=== PATIENT | female | born 1945 | race Caucasian/White ===

== ENCOUNTER 2020-09-04 10:31 | Observation (INO) ==
[2020-09-04 11:08] LABS: Eosinophils # 0.1 K/mcL (0.0-0.6); Eosinophils % 1.4 %; Hematocrit 19.8 % (35.3-44.9); Hemoglobin 6.2 g/dL (11.5-15.4); Immature Granulocytes % 1.1 % (0-4); Lymphocytes # 1.2 K/mcL (0.6-4.6); Mean Corpuscular HGB Conc 31.3 g/dL (31.6-35.5); Mean Corpuscular Hemoglobin 30.8 pg (28.0-33.3); Mean Corpuscular Volume 98.5 fL (83.0-100.0); Monocytes # 0.6 K/mcL (0.0-1.3); Neutrophils # 4.4 K/mcL (1.6-8.9); Platelet Count 194 K/mcL (140-400); Red Blood Count 2.01 M/mcL (3.82-4.97); Red Cell Distribution Width 14.6 % (11.5-14.5); Segmented Neutrophils % 68.5 %; White Blood Count 6.4 K/mcL (4.3-11.1)
[2020-09-04 11:15] LABS: Activated Partial Thrombo Time 26.7 Seconds (26.0-36.0)
[2020-09-04 11:25] LABS: Alanine Aminotransferase 16 Units/L (7-52); Albumin 3.5 g/dL (3.5-5.7); Albumin/Globulin Ratio 1.9 (1.1-2.2); Alkaline Phosphatase 37 Units/L (34-104); Aspartate Amino Transferase 15 Units/L (13-39); BUN/Creatinine Ratio 40 (6-26); Bilirubin,Total 0.5 mg/dL (0.3-1.0); Blood Urea Nitrogen 34 mg/dL (8-23); Calcium 8.1 mg/dL (8.6-10.3); Carbon Dioxide 23 mEq/L (23-29); Chloride 93 mEq/L (98-107); Globulin 1.8 g/dL (2.4-3.5); Glucose 88 mg/dL (70-105); Osmolality,Calculated 259 (280-300); Potassium 4.9 mEq/L (3.5-5.1); Sodium 121 mEq/L (136-145); Total Protein 5.3 g/dL (6.4-8.9); eGFR For African Americans > 60 (> 60); eGFR For Non-African Americans > 60 (> 60)
[2020-09-04] MEDS ORDERED: Mag Hydrox/Al Hydrox/Simeth 30 ML UDC PO PRN (13:33)
[2020-09-04] MEDS ORDERED: Melatonin 3 MG TABLET PO PRN (13:33)
[2020-09-04] MEDS ORDERED: Ondansetron 4 MG/2 ML VIAL IVP PRN (13:33)
[2020-09-04] MEDS ORDERED: Ondansetron ODT 4 MG TAB.RAPDIS SL PRN (13:33)
[2020-09-04] MEDS ORDERED: MOM Conc 10 ML UD.LIQ PO PRN (13:33)
[2020-09-04] MEDS ORDERED: Naloxone 0.4 MG/ML INJ IVP PRN (13:33)
[2020-09-04] MEDS ORDERED: Acetaminophen 325 MG TABLET PO PRN (13:33)
[2020-09-04] MEDS ORDERED: Furosemide 20 MG/2 ML VIAL IVP ONE ×2 (13:38→20:00)
[2020-09-04] MEDS ORDERED: 0.9 % Sodium Chloride 250 ML IVC SCH (13:45)
[2020-09-04 14:26] LABS: Bilirubin,Urine Moderate (Negative); Blood,Urine Negative (Negative); Clarity,Urine Clear (Clear); Color,Urine Yellow (Yellow); Glucose,Urine (UA) Normal (Normal); Ketones,Urine Negative (Negative); Leukocyte Esterase,Urine Moderate (Negative); Nitrite,Urine Positive (Negative); Protein,Urine Negative (Neg-Trace); Urobilinogen,Urine Normal (Normal)
[2020-09-04 14:33] LABS: Bacteria,Urine Many per hpf (None-Few); RBC,Urine 0-3 per hpf (0-3)
[2020-09-04] MEDS: ALPRAZolam 0.5 MG TABLET PO SCH ×2 (14:59→20:54)
[2020-09-04] MEDS: 0.9 % Sodium Chloride 1,000 ML IVC SCH (15:00)
[2020-09-04] MEDS: Gabapentin 300 MG CAPSULE PO SCH ×2 (15:00→20:54)
[2020-09-04] MEDS: amLODIPine 5 MG TABLET PO SCH (20:54)
[2020-09-04] MEDS: Metoprolol 100 MG TABLET PO SCH (20:54)
[2020-09-04 22:23] LABS: Hematocrit 24.2 % (35.3-44.9); Hemoglobin 7.6 g/dL (11.5-15.4)
[2020-09-05] MEDS ORDERED: 0.9 % Sodium Chloride 250 ML IVC SCH (00:15)
[2020-09-05 04:36] LABS: Hematocrit 25.1 % (35.3-44.9); Hemoglobin 7.9 g/dL (11.5-15.4); Mean Corpuscular HGB Conc 31.5 g/dL (31.6-35.5); Mean Corpuscular Hemoglobin 30.5 pg (28.0-33.3); Mean Corpuscular Volume 96.9 fL (83.0-100.0); Mean Platelet Volume 8.7 fL (9.4-12.4); Platelet Count 160 K/mcL (140-400); Red Blood Count 2.59 M/mcL (3.82-4.97); Red Cell Distribution Width 15.1 % (11.5-14.5); White Blood Count 4.8 K/mcL (4.3-11.1)
[2020-09-05 04:54] LABS: Alanine Aminotransferase 14 Units/L (7-52); Albumin 3.2 g/dL (3.5-5.7); Albumin/Globulin Ratio 1.9 (1.1-2.2); Alkaline Phosphatase 36 Units/L (34-104); Aspartate Amino Transferase 12 Units/L (13-39); BUN/Creatinine Ratio 33 (6-26); Bilirubin,Total 0.3 mg/dL (0.3-1.0); Blood Urea Nitrogen 24 mg/dL (8-23); Calcium 8.3 mg/dL (8.6-10.3); Carbon Dioxide 26 mEq/L (23-29); Chloride 101 mEq/L (98-107); Globulin 1.7 g/dL (2.4-3.5); Glucose 105 mg/dL (70-105); Magnesium 1.9 mg/dL (1.6-2.6); Osmolality,Calculated 276 (280-300); Phosphorous 3.3 mg/dL (2.7-4.5); Potassium 4.7 mEq/L (3.5-5.1); Sodium 131 mEq/L (136-145); Total Protein 4.9 g/dL (6.4-8.9); eGFR For African Americans > 60 (> 60); eGFR For Non-African Americans > 60 (> 60)
[2020-09-05] MEDS: 0.9 % Sodium Chloride 1,000 ML IVC SCH (05:52)
[2020-09-05 06:56] VITALS: BP 132/73
[2020-09-05] MEDS: Metoprolol 100 MG TABLET PO SCH (08:31)
[2020-09-05] MEDS: ALPRAZolam 0.5 MG TABLET PO SCH (08:31)
[2020-09-05] MEDS: amLODIPine 5 MG TABLET PO SCH (08:32)
[2020-09-05] MEDS: Gabapentin 300 MG CAPSULE PO SCH (08:32)
[2020-09-05] MEDS ORDERED: Fluticasone Propionate Nasal 50 MCG/SPRAY BOTTLE NS SCH (09:00)
[2020-09-05] MEDS ORDERED: lisinopriL 20 MG TABLET PO SCH (09:00)
[2020-09-05] MEDS ORDERED: Aspirin Enteric Coated 81 MG Tablet PO SCH (09:00)
[2020-09-05] MEDS ORDERED: Furosemide 40 MG TABLET PO SCH (09:00)
[2020-09-05] MEDS ORDERED: levoFLOXacin 500 MG TABLET PO SCH (09:00)
== END 2020-09-05 12:11 | disposition home or self-care (01) ==
LOC: EMEROOGRE 10:31 → INPGRE 10:31
PROVIDERS: ADMIT Family Medicine; ATTEND Family Medicine

== ENCOUNTER 2021-01-05 08:32 | Inpatient (IN) ==
[2021-01-06] MEDS: ALPRAZolam 0.5 MG TABLET PO SCH ×5 (17:40→21:34)
[2021-01-06] MEDS: Gabapentin 300 MG CAPSULE PO SCH ×5 (17:40→21:34)
[2021-01-06] MEDS: *HR* Enoxaparin 40 MG/0.4 ML SYRINGE SQ SCH (17:41)
[2021-01-06] MEDS: amLODIPine 5 MG TABLET PO SCH ×3 (17:41→21:39)
[2021-01-06] MEDS: Aspirin Enteric Coated 81 MG Tablet PO SCH (17:41)
[2021-01-06] MEDS: Metoprolol 100 MG TABLET PO SCH ×3 (17:41→21:34)
[2021-01-06] MEDS: Fluticasone Propionate Nasal 50 MCG/SPRAY BOTTLE NS SCH (17:42)
[2021-01-06] MEDS: lisinopriL 20 MG TABLET PO SCH (17:44)
[2021-01-06] MEDS: Furosemide 40 MG TABLET PO SCH (17:44)
[2021-01-06] MEDS: methocarbamoL 500 MG TABLET PO PRN (21:34)
[2021-01-07] MEDS: *HR* Enoxaparin 40 MG/0.4 ML SYRINGE SQ SCH (05:40)
[2021-01-07] MEDS: amLODIPine 5 MG TABLET PO SCH ×2 (08:43→21:38)
[2021-01-07] MEDS: Acetaminophen 325 MG TABLET PO PRN ×3 (08:43→21:37)
[2021-01-07] MEDS: lisinopriL 20 MG TABLET PO SCH (08:44)
[2021-01-07] MEDS: Gabapentin 300 MG CAPSULE PO SCH ×3 (08:44→21:39)
[2021-01-07] MEDS: Aspirin Enteric Coated 81 MG Tablet PO SCH (08:44)
[2021-01-07] MEDS: Furosemide 40 MG TABLET PO SCH (08:44)
[2021-01-07] MEDS: Metoprolol 100 MG TABLET PO SCH ×2 (08:44→21:38)
[2021-01-07] MEDS: ALPRAZolam 0.5 MG TABLET PO SCH ×3 (08:44→21:36)
[2021-01-07] MEDS: Fluticasone Propionate Nasal 50 MCG/SPRAY BOTTLE NS SCH (08:46)
[2021-01-07 10:29] LABS: Alanine Aminotransferase 11 Units/L (7-52); Albumin 3.8 g/dL (3.5-5.7); Albumin/Globulin Ratio 1.4 (1.1-2.2); Alkaline Phosphatase 138 Units/L (34-104); Aspartate Amino Transferase 12 Units/L (13-39); BUN/Creatinine Ratio 21 (6-26); Bilirubin,Total 0.7 mg/dL (0.3-1.0); Blood Urea Nitrogen 12 mg/dL (8-23); Calcium 9.7 mg/dL (8.6-10.3); Carbon Dioxide 29 mEq/L (23-29); Chloride 95 mEq/L (98-107); Globulin 2.7 g/dL (2.4-3.5); Glucose 102 mg/dL (70-105); Magnesium 1.5 mg/dL (1.6-2.6); Osmolality,Calculated 274 (280-300); Sodium 132 mEq/L (136-145); Total Protein 6.5 g/dL (6.4-8.9); eGFR For African Americans > 60 (> 60); eGFR For Non-African Americans > 60 (> 60)
[2021-01-07 10:37] LABS: Hematocrit 35.9 % (35.3-44.9); Hemoglobin 11.6 g/dL (11.5-15.4); Mean Corpuscular HGB Conc 32.3 g/dL (31.6-35.5); Mean Corpuscular Hemoglobin 29.9 pg (28.0-33.3); Mean Corpuscular Volume 92.5 fL (83.0-100.0); Mean Platelet Volume 8.8 fL (9.4-12.4); Platelet Count 343 K/mcL (140-400); Red Blood Count 3.88 M/mcL (3.82-4.97); Red Cell Distribution Width 13.5 % (11.5-14.5); White Blood Count 6.9 K/mcL (4.3-11.1)
[2021-01-07] MEDS: methocarbamoL 500 MG TABLET PO PRN (21:38)
[2021-01-08] MEDS ORDERED: *HR* HYDROcodone/Acet 5/325 mg TABLET PO ONE (04:16)
[2021-01-08] MEDS: *HR* Enoxaparin 40 MG/0.4 ML SYRINGE SQ SCH (04:34)
[2021-01-08] MEDS: Aspirin Enteric Coated 81 MG Tablet PO SCH (08:31)
[2021-01-08] MEDS: amLODIPine 5 MG TABLET PO SCH ×2 (08:31→20:45)
[2021-01-08] MEDS: lisinopriL 20 MG TABLET PO SCH (08:31)
[2021-01-08] MEDS: ALPRAZolam 0.5 MG TABLET PO SCH ×3 (08:32→20:44)
[2021-01-08] MEDS: Gabapentin 300 MG CAPSULE PO SCH ×3 (08:32→20:45)
[2021-01-08] MEDS: Furosemide 40 MG TABLET PO SCH (08:32)
[2021-01-08] MEDS: Fluticasone Propionate Nasal 50 MCG/SPRAY BOTTLE NS SCH (08:33)
[2021-01-08] MEDS: Metoprolol 100 MG TABLET PO SCH ×2 (08:35→20:44)
[2021-01-08] MEDS: Magnesium Oxide 400 MG TABLET PO SCH (20:45)
[2021-01-08] MEDS: methocarbamoL 500 MG TABLET PO PRN (20:46)
[2021-01-09] MEDS: *HR* Enoxaparin 40 MG/0.4 ML SYRINGE SQ SCH (04:35)
[2021-01-09] MEDS: Acetaminophen 325 MG TABLET PO PRN ×2 (04:42→13:03)
[2021-01-09] MEDS: methocarbamoL 500 MG TABLET PO PRN ×3 (04:42→21:43)
[2021-01-09 05:22] LABS: Hematocrit 30.4 % (35.3-44.9); Mean Corpuscular HGB Conc 31.9 g/dL (31.6-35.5); Mean Corpuscular Hemoglobin 29.8 pg (28.0-33.3); Mean Corpuscular Volume 93.5 fL (83.0-100.0); Mean Platelet Volume 8.5 fL (9.4-12.4); Platelet Count 244 K/mcL (140-400); Red Blood Count 3.25 M/mcL (3.82-4.97); Red Cell Distribution Width 13.3 % (11.5-14.5); White Blood Count 5.4 K/mcL (4.3-11.1)
[2021-01-09 05:27] LABS: Hemoglobin 9.7 g/dL (11.5-15.4)
[2021-01-09 05:37] LABS: BUN/Creatinine Ratio 30 (6-26); Blood Urea Nitrogen 10 mg/dL (8-23); Calcium 9.3 mg/dL (8.6-10.3); Carbon Dioxide 30 mEq/L (23-29); Chloride 99 mEq/L (98-107); Glucose 89 mg/dL (70-105); Magnesium 1.7 mg/dL (1.6-2.6); Osmolality,Calculated 277 (280-300); Potassium 4.2 mEq/L (3.5-5.1); Sodium 134 mEq/L (136-145); eGFR For African Americans > 60 (> 60); eGFR For Non-African Americans > 60 (> 60)
[2021-01-09] MEDS: Aspirin Enteric Coated 81 MG Tablet PO SCH (08:21)
[2021-01-09] MEDS: Gabapentin 300 MG CAPSULE PO SCH ×3 (08:21→21:43)
[2021-01-09] MEDS: lisinopriL 20 MG TABLET PO SCH (08:21)
[2021-01-09] MEDS: Furosemide 40 MG TABLET PO SCH (08:21)
[2021-01-09] MEDS: Fluticasone Propionate Nasal 50 MCG/SPRAY BOTTLE NS SCH (08:22)
[2021-01-09] MEDS: ALPRAZolam 0.5 MG TABLET PO SCH ×3 (08:22→21:42)
[2021-01-09] MEDS: amLODIPine 5 MG TABLET PO SCH ×2 (08:22→21:43)
[2021-01-09] MEDS: Metoprolol 100 MG TABLET PO SCH ×2 (08:22→21:42)
[2021-01-09] MEDS: Magnesium Oxide 400 MG TABLET PO SCH ×2 (08:23→21:43)
[2021-01-10] MEDS: *HR* Enoxaparin 40 MG/0.4 ML SYRINGE SQ SCH (05:10)
[2021-01-10] MEDS: Metoprolol 100 MG TABLET PO SCH ×2 (09:46→20:08)
[2021-01-10] MEDS: ALPRAZolam 0.5 MG TABLET PO SCH ×3 (09:46→20:09)
[2021-01-10] MEDS: Aspirin Enteric Coated 81 MG Tablet PO SCH (09:46)
[2021-01-10] MEDS: Furosemide 40 MG TABLET PO SCH (09:47)
[2021-01-10] MEDS: Magnesium Oxide 400 MG TABLET PO SCH ×2 (09:47→20:09)
[2021-01-10] MEDS: Gabapentin 300 MG CAPSULE PO SCH ×3 (09:47→20:09)
[2021-01-10] MEDS: lisinopriL 20 MG TABLET PO SCH (09:47)
[2021-01-10] MEDS: amLODIPine 5 MG TABLET PO SCH ×2 (09:47→20:08)
[2021-01-10] MEDS: methocarbamoL 500 MG TABLET PO PRN ×2 (09:47→20:09)
[2021-01-10] MEDS: Acetaminophen 325 MG TABLET PO PRN (09:47)
[2021-01-10] MEDS: Fluticasone Propionate Nasal 50 MCG/SPRAY BOTTLE NS SCH (09:52)
[2021-01-11] MEDS: *HR* Enoxaparin 40 MG/0.4 ML SYRINGE SQ SCH (05:28)
[2021-01-11] MEDS: amLODIPine 5 MG TABLET PO SCH ×2 (08:21→22:04)
[2021-01-11] MEDS: Acetaminophen 325 MG TABLET PO PRN ×2 (08:21→22:05)
[2021-01-11] MEDS: lisinopriL 20 MG TABLET PO SCH (08:21)
[2021-01-11] MEDS: Magnesium Oxide 400 MG TABLET PO SCH ×2 (08:21→22:06)
[2021-01-11] MEDS: Gabapentin 300 MG CAPSULE PO SCH ×3 (08:22→22:04)
[2021-01-11] MEDS: Aspirin Enteric Coated 81 MG Tablet PO SCH (08:22)
[2021-01-11] MEDS: methocarbamoL 500 MG TABLET PO PRN (08:22)
[2021-01-11] MEDS: ALPRAZolam 0.5 MG TABLET PO SCH ×3 (08:22→22:05)
[2021-01-11] MEDS: Metoprolol 100 MG TABLET PO SCH ×2 (08:22→22:05)
[2021-01-11] MEDS: Furosemide 40 MG TABLET PO SCH (08:22)
[2021-01-11] MEDS: Fluticasone Propionate Nasal 50 MCG/SPRAY BOTTLE NS SCH (08:23)
[2021-01-12] MEDS: *HR* Enoxaparin 40 MG/0.4 ML SYRINGE SQ SCH (05:42)
[2021-01-12] MEDS: ALPRAZolam 0.5 MG TABLET PO SCH ×3 (08:34→21:31)
[2021-01-12] MEDS: amLODIPine 5 MG TABLET PO SCH ×2 (08:34→21:31)
[2021-01-12] MEDS: Magnesium Oxide 400 MG TABLET PO SCH ×2 (08:35→21:33)
[2021-01-12] MEDS: Fluticasone Propionate Nasal 50 MCG/SPRAY BOTTLE NS SCH (08:35)
[2021-01-12] MEDS: Metoprolol 100 MG TABLET PO SCH ×2 (08:35→21:31)
[2021-01-12] MEDS: Gabapentin 300 MG CAPSULE PO SCH ×3 (08:35→21:31)
[2021-01-12] MEDS: Furosemide 40 MG TABLET PO SCH (08:35)
[2021-01-12] MEDS: Aspirin Enteric Coated 81 MG Tablet PO SCH (08:35)
[2021-01-12] MEDS: lisinopriL 20 MG TABLET PO SCH (08:35)
[2021-01-12] MEDS: Acetaminophen 325 MG TABLET PO PRN ×3 (08:48→21:30)
[2021-01-12] MEDS: methocarbamoL 500 MG TABLET PO PRN ×2 (08:48→21:32)
[2021-01-13] MEDS: *HR* Enoxaparin 40 MG/0.4 ML SYRINGE SQ SCH (04:38)
[2021-01-13] MEDS: Aspirin Enteric Coated 81 MG Tablet PO SCH (09:02)
[2021-01-13] MEDS: ALPRAZolam 0.5 MG TABLET PO SCH ×3 (09:02→20:49)
[2021-01-13] MEDS: Gabapentin 300 MG CAPSULE PO SCH ×3 (09:02→20:49)
[2021-01-13] MEDS: Acetaminophen 325 MG TABLET PO PRN ×2 (09:02→15:03)
[2021-01-13] MEDS: Magnesium Oxide 400 MG TABLET PO SCH ×2 (09:02→20:49)
[2021-01-13] MEDS: lisinopriL 20 MG TABLET PO SCH (09:02)
[2021-01-13] MEDS: methocarbamoL 500 MG TABLET PO PRN ×2 (09:03→20:49)
[2021-01-13] MEDS: Furosemide 40 MG TABLET PO SCH (09:03)
[2021-01-13] MEDS: amLODIPine 5 MG TABLET PO SCH ×2 (09:03→20:49)
[2021-01-13] MEDS: Fluticasone Propionate Nasal 50 MCG/SPRAY BOTTLE NS SCH (09:04)
[2021-01-13] MEDS: Metoprolol 100 MG TABLET PO SCH ×2 (09:04→20:49)
[2021-01-14] MEDS: *HR* Enoxaparin 40 MG/0.4 ML SYRINGE SQ SCH (05:53)
[2021-01-14 05:57] LABS: Hematocrit 29.8 % (35.3-44.9); Hemoglobin 9.4 g/dL (11.5-15.4); Mean Corpuscular HGB Conc 31.5 g/dL (31.6-35.5); Mean Corpuscular Hemoglobin 29.1 pg (28.0-33.3); Mean Corpuscular Volume 92.3 fL (83.0-100.0); Mean Platelet Volume 8.5 fL (9.4-12.4); Platelet Count 276 K/mcL (140-400); Red Blood Count 3.23 M/mcL (3.82-4.97); Red Cell Distribution Width 13.3 % (11.5-14.5); White Blood Count 3.9 K/mcL (4.3-11.1)
[2021-01-14 06:19] LABS: Alanine Aminotransferase 8 Units/L (7-52); Albumin 3.3 g/dL (3.5-5.7); Albumin/Globulin Ratio 1.5 (1.1-2.2); Alkaline Phosphatase 90 Units/L (34-104); Aspartate Amino Transferase 10 Units/L (13-39); BUN/Creatinine Ratio 27 (6-26); Bilirubin,Total 0.4 mg/dL (0.3-1.0); Blood Urea Nitrogen 11 mg/dL (8-23); Calcium 9.1 mg/dL (8.6-10.3); Carbon Dioxide 32 mEq/L (23-29); Chloride 99 mEq/L (98-107); Globulin 2.2 g/dL (2.4-3.5); Glucose 87 mg/dL (70-105); Magnesium 1.7 mg/dL (1.6-2.6); Osmolality,Calculated 281 (280-300); Potassium 3.8 mEq/L (3.5-5.1); Sodium 136 mEq/L (136-145); Total Protein 5.5 g/dL (6.4-8.9); eGFR For African Americans > 60 (> 60); eGFR For Non-African Americans > 60 (> 60)
[2021-01-14] MEDS: Gabapentin 300 MG CAPSULE PO SCH ×3 (08:32→20:10)
[2021-01-14] MEDS: ALPRAZolam 0.5 MG TABLET PO SCH ×3 (08:32→20:10)
[2021-01-14] MEDS: amLODIPine 5 MG TABLET PO SCH ×2 (08:32→20:10)
[2021-01-14] MEDS: Metoprolol 100 MG TABLET PO SCH ×2 (08:32→20:09)
[2021-01-14] MEDS: Magnesium Oxide 400 MG TABLET PO SCH ×2 (08:32→20:10)
[2021-01-14] MEDS: methocarbamoL 500 MG TABLET PO PRN (08:32)
[2021-01-14] MEDS: lisinopriL 20 MG TABLET PO SCH (08:32)
[2021-01-14] MEDS: Furosemide 40 MG TABLET PO SCH (08:32)
[2021-01-14] MEDS: Acetaminophen 325 MG TABLET PO PRN (08:33)
[2021-01-14] MEDS: Aspirin Enteric Coated 81 MG Tablet PO SCH (08:33)
[2021-01-14] MEDS: Fluticasone Propionate Nasal 50 MCG/SPRAY BOTTLE NS SCH (09:29)
[2021-01-15] MEDS: *HR* Enoxaparin 40 MG/0.4 ML SYRINGE SQ SCH (04:05)
[2021-01-15] MEDS: ALPRAZolam 0.5 MG TABLET PO SCH ×3 (08:18→20:42)
[2021-01-15] MEDS: Metoprolol 100 MG TABLET PO SCH ×2 (08:18→20:42)
[2021-01-15] MEDS: Furosemide 40 MG TABLET PO SCH (08:18)
[2021-01-15] MEDS: amLODIPine 5 MG TABLET PO SCH ×2 (08:18→20:42)
[2021-01-15] MEDS: lisinopriL 20 MG TABLET PO SCH (08:19)
[2021-01-15] MEDS: Fluticasone Propionate Nasal 50 MCG/SPRAY BOTTLE NS SCH (08:19)
[2021-01-15] MEDS: Aspirin Enteric Coated 81 MG Tablet PO SCH (08:19)
[2021-01-15] MEDS: Gabapentin 300 MG CAPSULE PO SCH ×3 (08:19→20:42)
[2021-01-15] MEDS: Magnesium Oxide 400 MG TABLET PO SCH ×2 (08:19→20:42)
[2021-01-15] MEDS: Acetaminophen 325 MG TABLET PO PRN ×2 (08:21→20:42)
[2021-01-15] MEDS: methocarbamoL 500 MG TABLET PO PRN (10:03)
[2021-01-16] MEDS: *HR* Enoxaparin 40 MG/0.4 ML SYRINGE SQ SCH (04:34)
[2021-01-16] MEDS: amLODIPine 5 MG TABLET PO SCH ×2 (09:02→21:29)
[2021-01-16] MEDS: Gabapentin 300 MG CAPSULE PO SCH ×3 (09:02→21:29)
[2021-01-16] MEDS: Metoprolol 100 MG TABLET PO SCH ×2 (09:02→21:29)
[2021-01-16] MEDS: Furosemide 40 MG TABLET PO SCH (09:03)
[2021-01-16] MEDS: lisinopriL 20 MG TABLET PO SCH (09:03)
[2021-01-16] MEDS: ALPRAZolam 0.5 MG TABLET PO SCH ×3 (09:03→21:29)
[2021-01-16] MEDS: Aspirin Enteric Coated 81 MG Tablet PO SCH (09:03)
[2021-01-16] MEDS: methocarbamoL 500 MG TABLET PO PRN ×2 (09:04→21:30)
[2021-01-16] MEDS: Fluticasone Propionate Nasal 50 MCG/SPRAY BOTTLE NS SCH (09:04)
[2021-01-16] MEDS: Magnesium Oxide 400 MG TABLET PO SCH ×2 (09:04→21:28)
[2021-01-16] MEDS: Acetaminophen 325 MG TABLET PO PRN (09:07)
[2021-01-17 04:48] LABS: Basophils % 0.2 %; Eosinophils # 0.1 K/mcL (0.0-0.6); Eosinophils % 2.6 %; Hematocrit 30.5 % (35.3-44.9); Hemoglobin 9.7 g/dL (11.5-15.4); Immature Granulocytes % 1.3 % (0-4); Lymphocytes # 1.4 K/mcL (0.6-4.6); Mean Corpuscular HGB Conc 31.8 g/dL (31.6-35.5); Mean Corpuscular Hemoglobin 29.5 pg (28.0-33.3); Mean Corpuscular Volume 92.7 fL (83.0-100.0); Mean Platelet Volume 8.2 fL (9.4-12.4); Monocytes # 0.6 K/mcL (0.0-1.3); Monocytes % 12.9 %; Neutrophils # 2.5 K/mcL (1.6-8.9); Platelet Count 297 K/mcL (140-400); Red Blood Count 3.29 M/mcL (3.82-4.97); Red Cell Distribution Width 13.3 % (11.5-14.5); White Blood Count 4.7 K/mcL (4.3-11.1)
[2021-01-17 05:00] LABS: BUN/Creatinine Ratio 24 (6-26); Blood Urea Nitrogen 9 mg/dL (8-23); Carbon Dioxide 31 mEq/L (23-29); Chloride 101 mEq/L (98-107); Glucose 90 mg/dL (70-105); Osmolality,Calculated 282 (280-300); Potassium 3.7 mEq/L (3.5-5.1); Sodium 137 mEq/L (136-145); eGFR For African Americans > 60 (> 60); eGFR For Non-African Americans > 60 (> 60)
[2021-01-17] MEDS: *HR* Enoxaparin 40 MG/0.4 ML SYRINGE SQ SCH (05:22)
[2021-01-17 08:01] VITALS: O2SAT 97
[2021-01-17] MEDS: Metoprolol 100 MG TABLET PO SCH ×2 (09:56→21:16)
[2021-01-17] MEDS: lisinopriL 20 MG TABLET PO SCH (09:56)
[2021-01-17] MEDS: ALPRAZolam 0.5 MG TABLET PO SCH ×3 (09:56→21:15)
[2021-01-17] MEDS: Furosemide 40 MG TABLET PO SCH (09:56)
[2021-01-17] MEDS: Aspirin Enteric Coated 81 MG Tablet PO SCH (09:56)
[2021-01-17] MEDS: Magnesium Oxide 400 MG TABLET PO SCH ×2 (09:56→21:17)
[2021-01-17] MEDS: Gabapentin 300 MG CAPSULE PO SCH ×3 (09:56→21:16)
[2021-01-17] MEDS: Fluticasone Propionate Nasal 50 MCG/SPRAY BOTTLE NS SCH (09:57)
[2021-01-17] MEDS: amLODIPine 5 MG TABLET PO SCH ×2 (10:01→21:16)
[2021-01-17 19:55] VITALS: BP 126/76
[2021-01-17] MEDS: methocarbamoL 500 MG TABLET PO PRN (21:16)
[2021-01-18] MEDS: *HR* Enoxaparin 40 MG/0.4 ML SYRINGE SQ SCH (05:14)
[2021-01-18 07:24] VITALS: PULSE 68; RESP 16; TEMP 97.6
[2021-01-18] MEDS: Aspirin Enteric Coated 81 MG Tablet PO SCH (08:41)
[2021-01-18] MEDS: ALPRAZolam 0.5 MG TABLET PO SCH (08:41)
[2021-01-18] MEDS: lisinopriL 20 MG TABLET PO SCH (08:41)
[2021-01-18] MEDS: Magnesium Oxide 400 MG TABLET PO SCH (08:41)
[2021-01-18] MEDS: Metoprolol 100 MG TABLET PO SCH (08:41)
[2021-01-18] MEDS: Gabapentin 300 MG CAPSULE PO SCH (08:41)
[2021-01-18] MEDS: Fluticasone Propionate Nasal 50 MCG/SPRAY BOTTLE NS SCH (08:42)
[2021-01-18] MEDS: Furosemide 40 MG TABLET PO SCH (08:42)
[2021-01-18] MEDS: amLODIPine 5 MG TABLET PO SCH (08:42)
[2021-01-18] MEDS: Acetaminophen 325 MG TABLET PO PRN (08:43)
== END 2021-01-18 12:00 | disposition home or self-care (01) | DRG 560 ==
LOC: INPGRE 01-06 15:29
PROVIDERS: ADMIT Family Medicine; ATTEND Family Medicine

== ENCOUNTER 2021-06-13 14:19 | Observation (INO) ==
[2021-06-13] MEDS ORDERED: 0.9 % Sodium Chloride 500 ML IVC ONE (14:55)
[2021-06-13 16:21] LABS: Eosinophils % 0.1 %; Hematocrit 38.7 % (35.3-44.9); Hemoglobin 12.6 g/dL (11.5-15.4); Immature Granulocytes % 0.4 % (0-4); Lymphocytes % 13.4 %; Mean Corpuscular HGB Conc 32.6 g/dL (31.6-35.5); Mean Corpuscular Hemoglobin 30.4 pg (28.0-33.3); Mean Corpuscular Volume 93.3 fL (83.0-100.0); Mean Platelet Volume 9.1 fL (9.4-12.4); Monocytes # 0.8 K/mcL (0.0-1.3); Monocytes % 11.5 %; Neutrophils # 5.3 K/mcL (1.6-8.9); Platelet Count 193 K/mcL (140-400); Red Blood Count 4.15 M/mcL (3.82-4.97); Red Cell Distribution Width 12.9 % (11.5-14.5); Segmented Neutrophils % 74.6 %; White Blood Count 7.1 K/mcL (4.3-11.1)
[2021-06-13 16:22] LABS: Prothrombin Time 11.2 Seconds (9.4-12.1)
[2021-06-13 16:25] LABS: Activated Partial Thrombo Time 23.8 Seconds (26.0-36.0)
[2021-06-13 16:34] LABS: Alanine Aminotransferase 11 Units/L (7-52); Albumin 4.2 g/dL (3.5-5.7); Alkaline Phosphatase 70 Units/L (34-104); Aspartate Amino Transferase 16 Units/L (13-39); BUN/Creatinine Ratio 13 (6-26); Bilirubin,Direct 0.1 mg/dL (0.0-0.2); Bilirubin,Indirect 0.5 mg/dL (0.0-1.0); Bilirubin,Total 0.6 mg/dL (0.3-1.0); Blood Urea Nitrogen 6 mg/dL (8-23); Calcium 9.1 mg/dL (8.6-10.3); Carbon Dioxide 24 mEq/L (23-29); Chloride 92 mEq/L (98-107); Creatine Kinase 60 Units/L (30-223); Ethanol < 10 mg/dL (Less than 10); Globulin 2.1 g/dL (2.4-3.5); Glucose 101 mg/dL (70-105); Osmolality,Calculated 266 (280-300); Potassium 3.3 mEq/L (3.5-5.1); Sodium 129 mEq/L (136-145); Total Protein 6.3 g/dL (6.4-8.9); Troponin I 0.03 ng/mL (< 0.04); eGFR For African Americans > 60 (> 60); eGFR For Non-African Americans > 60 (> 60)
[2021-06-13 16:39] LABS: Platelet Estimate Normal (Normal); Toxic Vacuolation Present (Not Present)
[2021-06-13 16:47] LABS: Thyroid Stimulating Hormone 1.349 mcIU/mL (0.340-5.600)
[2021-06-13 17:23] LABS: Bilirubin,Urine Moderate (Negative); Blood,Urine Negative (Negative); Clarity,Urine Clear (Clear); Color,Urine Yellow (Yellow); Glucose,Urine (UA) Normal (Normal); Ketones,Urine >=160 mg/dL (Negative); Leukocyte Esterase,Urine Negative (Negative); Nitrite,Urine Negative (Negative); Protein,Urine 100 mg/dL (Neg-Trace); Specific Gravity,Urine >= 1.030 (1.010-1.025); Urobilinogen,Urine Normal (Normal)
[2021-06-13 17:28] LABS: RBC,Urine 0-3 per hpf (0-3)
[2021-06-13 17:29] LABS: Hyaline Casts,Urine Few per lpf (None Seen)
[2021-06-13 17:35] LABS: Amphetamine Screen,Urine Negative ng/mL (Cutoff=1000); Barbiturate Screen,Urine Negative ng/mL (Cutoff=200); Benzodiazepines Screen,Urine Positive ng/mL (Cutoff=200); Cannabinoid Screen,Urine Negative ng/mL (Cutoff = 50); Cocaine Screen,Urine Negative ng/mL (Cutoff= 300); Opiate Screen,Urine Negative ng/mL (Cutoff=300); Phencyclidine Screen,Urine Negative ng/mL (Cutoff=25)
[2021-06-13] MEDS ORDERED: Metoprolol 100 MG TABLET PO SCH (18:00)
[2021-06-13] MEDS ORDERED: lisinopriL 20 MG TABLET PO STA (18:03)
[2021-06-13] MEDS ORDERED: Metoprolol 100 MG TABLET PO STA (18:05)
[2021-06-13] MEDS ORDERED: Naloxone 0.4 MG/ML INJ IVP PRN ×4 (19:27→21:34)
[2021-06-13] MEDS ORDERED: Ondansetron ODT 4 MG TAB.RAPDIS SL PRN ×2 (19:27→21:34)
[2021-06-13] MEDS ORDERED: 0.9 % Sodium Chloride 1,000 ML IVC SCH ×3 (19:30→21:34)
[2021-06-13] MEDS ORDERED: Ondansetron 4 MG/2 ML VIAL IVP PRN (21:34)
[2021-06-13] MEDS ORDERED: Acetaminophen 325 MG TABLET PO PRN (21:34)
[2021-06-13] MEDS ORDERED: amLODIPine 5 MG TABLET PO SCH (21:34)
[2021-06-13] MEDS: Gabapentin 300 MG CAPSULE PO SCH (23:49)
[2021-06-13] MEDS: Magnesium Oxide 400 MG TABLET PO SCH (23:49)
[2021-06-13] MEDS: Metoprolol 100 MG TABLET PO SCH (23:49)
[2021-06-14 04:44] LABS: Eosinophils % 0.2 %; Hematocrit 34.3 % (35.3-44.9); Hemoglobin 11.3 g/dL (11.5-15.4); Immature Granulocytes % 0.3 % (0-4); Lymphocytes # 0.9 K/mcL (0.6-4.6); Lymphocytes % 15.4 %; Mean Corpuscular HGB Conc 32.9 g/dL (31.6-35.5); Mean Corpuscular Hemoglobin 30.5 pg (28.0-33.3); Mean Corpuscular Volume 92.5 fL (83.0-100.0); Mean Platelet Volume 8.5 fL (9.4-12.4); Monocytes # 0.7 K/mcL (0.0-1.3); Monocytes % 11.6 %; Neutrophils # 4.4 K/mcL (1.6-8.9); Platelet Count 205 K/mcL (140-400); Red Blood Count 3.71 M/mcL (3.82-4.97); Red Cell Distribution Width 12.8 % (11.5-14.5); Segmented Neutrophils % 72.5 %; White Blood Count 6.1 K/mcL (4.3-11.1)
[2021-06-14 04:58] LABS: BUN/Creatinine Ratio 13 (6-26); Blood Urea Nitrogen 5 mg/dL (8-23); Calcium 8.7 mg/dL (8.6-10.3); Carbon Dioxide 26 mEq/L (23-29); Chloride 94 mEq/L (98-107); Glucose 97 mg/dL (70-105); Magnesium 1.7 mg/dL (1.6-2.6); Osmolality,Calculated 261 (280-300); Sodium 127 mEq/L (136-145); eGFR For African Americans > 60 (> 60); eGFR For Non-African Americans > 60 (> 60)
[2021-06-14] MEDS ORDERED: NIFEdipine XL (24 HR) 60 MG TAB.ER.24 PO SCH (05:28)
[2021-06-14] MEDS ORDERED: 0.9 % Sodium Chloride 1,000 ML IVC SCH (06:00)
[2021-06-14] MEDS ORDERED: *HR* Enoxaparin 30 MG/0.3 ML SYRINGE SQ SCH (07:00)
[2021-06-14] MEDS ORDERED: Furosemide 20 MG TABLET PO SCH (09:00)
[2021-06-14] MEDS ORDERED: cefOXitin 1,000 MG in 0.9 % Sodium Chloride Mini Bag 100 ML IVPB SCH (09:00)
[2021-06-14] MEDS ORDERED: lisinopriL 20 MG TABLET PO SCH (09:00)
[2021-06-14] MEDS ORDERED: Aspirin Enteric Coated 81 MG Tablet PO SCH (09:00)
[2021-06-14] MEDS: Metoprolol 100 MG TABLET PO SCH (09:03)
[2021-06-14] MEDS: Gabapentin 300 MG CAPSULE PO SCH (09:03)
[2021-06-14] MEDS: Magnesium Oxide 400 MG TABLET PO SCH (09:04)
[2021-06-14 09:08] VITALS: O2SAT 95
[2021-06-14 12:49] VITALS: BP 113/67; PULSE 72; RESP 16; TEMP 98.6
[2021-06-14] MEDS ORDERED: lisinopriL 20 MG TABLET PO ONE (17:34)
== END 2021-06-14 13:37 | disposition short-term general hospital (02) ==
LOC: EMEROOGRE 14:19 → INPGRE 18:42 → INTOOBSV 18:42 → INPGRE 18:58
PROVIDERS: ADMIT Internal Medicine; ATTEND Internal Medicine

== ENCOUNTER 2021-06-27 14:19 | Inpatient (IN) ==
[2021-06-27] MEDS: amLODIPine 5 MG TABLET PO SCH (21:12)
[2021-06-27] MEDS: Metoprolol 100 MG TABLET PO SCH (21:12)
[2021-06-27] MEDS: Gabapentin 300 MG CAPSULE PO SCH (21:12)
[2021-06-28 05:40] LABS: Basophils % 0.1 %; Eosinophils # 0.1 K/mcL (0.0-0.6); Eosinophils % 0.6 %; Hematocrit 25.9 % (35.3-44.9); Hemoglobin 8.5 g/dL (11.5-15.4); Immature Granulocytes % 1.2 % (0-4); Lymphocytes # 1.3 K/mcL (0.6-4.6); Lymphocytes % 16.1 %; Mean Corpuscular HGB Conc 32.8 g/dL (31.6-35.5); Mean Corpuscular Hemoglobin 29.8 pg (28.0-33.3); Mean Corpuscular Volume 90.9 fL (83.0-100.0); Mean Platelet Volume 8.2 fL (9.4-12.4); Monocytes # 0.9 K/mcL (0.0-1.3); Monocytes % 11.2 %; Neutrophils # 5.8 K/mcL (1.6-8.9); Platelet Count 264 K/mcL (140-400); Red Blood Count 2.85 M/mcL (3.82-4.97); Red Cell Distribution Width 12.5 % (11.5-14.5); Segmented Neutrophils % 70.8 %; White Blood Count 8.2 K/mcL (4.3-11.1)
[2021-06-28] MEDS: *HR* Enoxaparin 40 MG/0.4 ML SYRINGE SQ SCH (06:07)
[2021-06-28] MEDS: Gabapentin 300 MG CAPSULE PO SCH ×3 (07:39→20:18)
[2021-06-28] MEDS: Metoprolol 100 MG TABLET PO SCH ×2 (07:40→20:20)
[2021-06-28] MEDS: ALPRAZolam 0.5 MG TABLET PO PRN ×2 (07:40→16:05)
[2021-06-28] MEDS: amLODIPine 5 MG TABLET PO SCH (07:40)
[2021-06-28] MEDS ORDERED: Maxitrol OPTH SUSP 5 ML BOTTLE BOTH EYES SCH (09:00)
[2021-06-28] MEDS: lisinopriL 20 MG TABLET PO SCH (09:35)
[2021-06-28] MEDS: Furosemide 20 MG TABLET PO SCH (09:35)
[2021-06-28] MEDS: Aspirin Enteric Coated 81 MG Tablet PO SCH (09:36)
[2021-06-28] MEDS: Thiamine (B-1) 100 MG TABLET PO SCH (09:36)
[2021-06-29] MEDS: *HR* Enoxaparin 40 MG/0.4 ML SYRINGE SQ SCH (04:44)
[2021-06-29 08:03] LABS: Basophils % 0.4 %; Eosinophils # 0.1 K/mcL (0.0-0.6); Eosinophils % 1.6 %; Hemoglobin 8.9 g/dL (11.5-15.4); Immature Granulocytes % 1.6 % (0-4); Lymphocytes # 1.4 K/mcL (0.6-4.6); Lymphocytes % 17.8 %; Mean Corpuscular HGB Conc 31.8 g/dL (31.6-35.5); Mean Corpuscular Hemoglobin 29.8 pg (28.0-33.3); Mean Corpuscular Volume 93.6 fL (83.0-100.0); Mean Platelet Volume 8.6 fL (9.4-12.4); Monocytes # 0.8 K/mcL (0.0-1.3); Monocytes % 10.2 %; Neutrophils # 5.5 K/mcL (1.6-8.9); Platelet Count 346 K/mcL (140-400); Red Blood Count 2.99 M/mcL (3.82-4.97); Red Cell Distribution Width 12.8 % (11.5-14.5); Segmented Neutrophils % 68.4 %
[2021-06-29] MEDS: lisinopriL 20 MG TABLET PO SCH (08:13)
[2021-06-29] MEDS: Metoprolol 100 MG TABLET PO SCH ×2 (08:13→21:33)
[2021-06-29] MEDS: Gabapentin 300 MG CAPSULE PO SCH ×3 (08:13→21:33)
[2021-06-29] MEDS: Thiamine (B-1) 100 MG TABLET PO SCH (08:13)
[2021-06-29] MEDS: Furosemide 20 MG TABLET PO SCH (08:13)
[2021-06-29 08:14] LABS: BUN/Creatinine Ratio 39 (6-26); Blood Urea Nitrogen 22 mg/dL (8-23); Carbon Dioxide 27 mEq/L (23-29); Chloride 99 mEq/L (98-107); Glucose 104 mg/dL (70-105); Osmolality,Calculated 280 (280-300); Potassium 4.1 mEq/L (3.5-5.1); Sodium 133 mEq/L (136-145); eGFR For African Americans > 60 (> 60); eGFR For Non-African Americans > 60 (> 60)
[2021-06-29] MEDS: Aspirin Enteric Coated 81 MG Tablet PO SCH (08:14)
[2021-06-29] MEDS: Maxitrol Opth OINT 3.5 GM TUBE RIGHT EYE SCH ×4 (08:15→21:36)
[2021-06-29] MEDS: Maxitrol OPTH SUSP 5 ML BOTTLE RIGHT EYE SCH (08:16)
[2021-06-29] MEDS: Acetaminophen 325 MG TABLET PO PRN (15:06)
[2021-06-29 21:07] LABS: Bilirubin,Urine Negative (Negative); Blood,Urine Trace-lysed (Negative); Clarity,Urine Clear (Clear); Color,Urine Yellow (Yellow); Glucose,Urine (UA) Normal (Normal); Ketones,Urine Negative (Negative); Leukocyte Esterase,Urine Trace (Negative); Nitrite,Urine Negative (Negative); PH,Urine 6.5 pH Units (5.0-8.0); Protein,Urine Negative (Neg-Trace); Urobilinogen,Urine Normal (Normal)
[2021-06-29 21:17] LABS: Bacteria,Urine Few per hpf (None-Few); Squamous Epithelial Cell,Urine Few per hpf (None-Few); Transitional Epi Cells,Urine Few per hpf (None-Few)
[2021-06-29] MEDS: ALPRAZolam 0.5 MG TABLET PO PRN (21:34)
[2021-06-30] MEDS: *HR* Enoxaparin 40 MG/0.4 ML SYRINGE SQ SCH (04:03)
[2021-06-30] MEDS: Furosemide 20 MG TABLET PO SCH (08:03)
[2021-06-30] MEDS: lisinopriL 20 MG TABLET PO SCH (08:03)
[2021-06-30] MEDS: Metoprolol 100 MG TABLET PO SCH ×2 (08:03→21:42)
[2021-06-30] MEDS: Aspirin Enteric Coated 81 MG Tablet PO SCH (08:03)
[2021-06-30] MEDS: Thiamine (B-1) 100 MG TABLET PO SCH (08:03)
[2021-06-30] MEDS: Gabapentin 300 MG CAPSULE PO SCH ×3 (08:03→21:43)
[2021-06-30] MEDS: Maxitrol Opth OINT 3.5 GM TUBE RIGHT EYE SCH ×4 (08:04→21:43)
[2021-06-30] MEDS: Maxitrol OPTH SUSP 5 ML BOTTLE RIGHT EYE SCH (08:04)
[2021-06-30] MEDS: ALPRAZolam 0.5 MG TABLET PO PRN (21:42)
[2021-06-30] MEDS: Acetaminophen 325 MG TABLET PO PRN (21:42)
[2021-07-01] MEDS: *HR* Enoxaparin 40 MG/0.4 ML SYRINGE SQ SCH (05:59)
[2021-07-01] MEDS: Aspirin Enteric Coated 81 MG Tablet PO SCH (07:59)
[2021-07-01] MEDS: lisinopriL 20 MG TABLET PO SCH (08:00)
[2021-07-01] MEDS: Metoprolol 100 MG TABLET PO SCH ×2 (08:00→19:50)
[2021-07-01] MEDS: Thiamine (B-1) 100 MG TABLET PO SCH (08:00)
[2021-07-01] MEDS: Gabapentin 300 MG CAPSULE PO SCH ×3 (08:00→19:50)
[2021-07-01] MEDS: Maxitrol Opth OINT 3.5 GM TUBE RIGHT EYE SCH ×4 (08:00→19:51)
[2021-07-01] MEDS: Maxitrol OPTH SUSP 5 ML BOTTLE RIGHT EYE SCH (08:00)
[2021-07-01] MEDS: Furosemide 20 MG TABLET PO SCH (08:00)
[2021-07-01] MEDS: Acetaminophen 325 MG TABLET PO PRN ×2 (15:04→21:20)
[2021-07-01] MEDS: ALPRAZolam 0.5 MG TABLET PO PRN (21:20)
[2021-07-02] MEDS: *HR* Enoxaparin 40 MG/0.4 ML SYRINGE SQ SCH (05:50)
[2021-07-02] MEDS: Thiamine (B-1) 100 MG TABLET PO SCH (08:17)
[2021-07-02] MEDS: lisinopriL 20 MG TABLET PO SCH (08:17)
[2021-07-02] MEDS: Metoprolol 100 MG TABLET PO SCH ×2 (08:17→20:39)
[2021-07-02] MEDS: Aspirin Enteric Coated 81 MG Tablet PO SCH (08:17)
[2021-07-02] MEDS: Gabapentin 300 MG CAPSULE PO SCH ×3 (08:17→20:39)
[2021-07-02] MEDS: Maxitrol OPTH SUSP 5 ML BOTTLE RIGHT EYE SCH (08:17)
[2021-07-02] MEDS: Furosemide 20 MG TABLET PO SCH (08:17)
[2021-07-02] MEDS: Maxitrol Opth OINT 3.5 GM TUBE RIGHT EYE SCH ×4 (08:18→20:42)
[2021-07-02] MEDS: Acetaminophen 325 MG TABLET PO PRN ×2 (08:21→15:41)
[2021-07-03] MEDS: Thiamine (B-1) 100 MG TABLET PO SCH (07:46)
[2021-07-03] MEDS: lisinopriL 20 MG TABLET PO SCH (07:46)
[2021-07-03] MEDS: Aspirin Enteric Coated 81 MG Tablet PO SCH (07:46)
[2021-07-03] MEDS: Furosemide 20 MG TABLET PO SCH (07:47)
[2021-07-03] MEDS: Gabapentin 300 MG CAPSULE PO SCH ×3 (07:47→21:20)
[2021-07-03] MEDS: Metoprolol 100 MG TABLET PO SCH ×2 (07:47→21:20)
[2021-07-03] MEDS: *HR* Enoxaparin 40 MG/0.4 ML SYRINGE SQ SCH (07:47)
[2021-07-03] MEDS: Maxitrol Opth OINT 3.5 GM TUBE RIGHT EYE SCH ×4 (07:49→21:22)
[2021-07-03] MEDS: Maxitrol OPTH SUSP 5 ML BOTTLE RIGHT EYE SCH (07:50)
[2021-07-03] MEDS: Acetaminophen 325 MG TABLET PO PRN (12:06)
[2021-07-03] MEDS: ALPRAZolam 0.5 MG TABLET PO PRN (21:20)
[2021-07-04] MEDS: *HR* Enoxaparin 40 MG/0.4 ML SYRINGE SQ SCH (05:15)
[2021-07-04 05:18] LABS: Basophils % 0.4 %; Eosinophils # 0.1 K/mcL (0.0-0.6); Eosinophils % 1.7 %; Hematocrit 26.1 % (35.3-44.9); Hemoglobin 8.1 g/dL (11.5-15.4); Immature Granulocytes % 1.9 % (0-4); Lymphocytes # 1.3 K/mcL (0.6-4.6); Lymphocytes % 26.5 %; Mean Corpuscular Hemoglobin 29.2 pg (28.0-33.3); Mean Corpuscular Volume 94.2 fL (83.0-100.0); Mean Platelet Volume 8.5 fL (9.4-12.4); Monocytes # 0.6 K/mcL (0.0-1.3); Monocytes % 13.4 %; Neutrophils # 2.7 K/mcL (1.6-8.9); Platelet Count 262 K/mcL (140-400); Red Blood Count 2.77 M/mcL (3.82-4.97); Red Cell Distribution Width 12.7 % (11.5-14.5); Segmented Neutrophils % 56.1 %; White Blood Count 4.8 K/mcL (4.3-11.1)
[2021-07-04 05:25] LABS: BUN/Creatinine Ratio 22 (6-26); Blood Urea Nitrogen 10 mg/dL (8-23); Calcium 8.6 mg/dL (8.6-10.3); Carbon Dioxide 27 mEq/L (23-29); Chloride 98 mEq/L (98-107); Glucose 90 mg/dL (70-105); Osmolality,Calculated 271 (280-300); Potassium 4.5 mEq/L (3.5-5.1); Sodium 131 mEq/L (136-145); eGFR For African Americans > 60 (> 60); eGFR For Non-African Americans > 60 (> 60)
[2021-07-04] MEDS: Furosemide 20 MG TABLET PO SCH (08:57)
[2021-07-04] MEDS: Aspirin Enteric Coated 81 MG Tablet PO SCH (08:57)
[2021-07-04] MEDS: Thiamine (B-1) 100 MG TABLET PO SCH (08:57)
[2021-07-04] MEDS: lisinopriL 20 MG TABLET PO SCH (08:58)
[2021-07-04] MEDS: Acetaminophen 325 MG TABLET PO PRN (08:58)
[2021-07-04] MEDS: Gabapentin 300 MG CAPSULE PO SCH ×3 (08:58→20:17)
[2021-07-04] MEDS: Metoprolol 100 MG TABLET PO SCH ×2 (11:14→20:16)
[2021-07-04] MEDS: Maxitrol Opth OINT 3.5 GM TUBE RIGHT EYE SCH ×4 (11:15→20:18)
[2021-07-04] MEDS: Maxitrol OPTH SUSP 5 ML BOTTLE RIGHT EYE SCH (11:15)
[2021-07-04 18:56] VITALS: O2SAT 96
[2021-07-05] MEDS: *HR* Enoxaparin 40 MG/0.4 ML SYRINGE SQ SCH (05:30)
[2021-07-05 07:51] VITALS: BP 154/80; PULSE 69; RESP 16; TEMP 98.4
[2021-07-05] MEDS: Gabapentin 300 MG CAPSULE PO SCH (08:34)
[2021-07-05] MEDS: Maxitrol Opth OINT 3.5 GM TUBE RIGHT EYE SCH (08:35)
[2021-07-05] MEDS: Thiamine (B-1) 100 MG TABLET PO SCH (08:35)
[2021-07-05] MEDS: Acetaminophen 325 MG TABLET PO PRN (08:35)
[2021-07-05] MEDS: Maxitrol OPTH SUSP 5 ML BOTTLE RIGHT EYE SCH (08:35)
[2021-07-05] MEDS: Metoprolol 100 MG TABLET PO SCH (08:35)
[2021-07-05] MEDS: lisinopriL 20 MG TABLET PO SCH (08:35)
[2021-07-05] MEDS: Furosemide 20 MG TABLET PO SCH (08:35)
[2021-07-05] MEDS: Aspirin Enteric Coated 81 MG Tablet PO SCH (08:35)
== END 2021-07-05 14:30 | disposition home health service (06) | DRG 65 ==
LOC: INPGRE 18:24
PROVIDERS: ADMIT Family Medicine; ATTEND Family Medicine